=== PATIENT | female | born 1990 | race Two or more races ===

== ENCOUNTER 2023-10-18 02:20 | Emergency (ER) | payer OTHER ==
[~2023-10-18] VITALS: Ht 160 cm; Wt 74.4 kg
[2023-10-18] MEDS ORDERED: PRENA1 CHEW TA1.4 MG PO (02:34)
[2023-10-18 06:00] LABS: PH,URINE 6.5 (5.0-8.0); URINE APPEARANCE Clear; URINE BILIRRUBIN Negative (NEGATIVE); URINE BLOOD Large; URINE COLOR Yellow; URINE GLUCOSE Negative (NEGATIVE); URINE LEUKOCYTE Small; URINE NITRATE Negative; URINE PROTEIN Negative (NEGATIVE); URINE UROBILINOGEN 0.2 E.U./dl
[2023-10-18 06:03] LABS: URINE RBC 10.6 uL (0.0-20.8); URINE WBC 86.7 uL (0.0-23.2)
[2023-10-18 06:11] LABS: HEMATOCRIT 36.5 % (36.0-45.00); HEMOGLOBIN 12.8 g/dL (12.0-15.00); MEAN CELL VOLUME 93.9 fL (80.00-100.00); MEAN CORPUSCULAR HGB CONC 35.2 g/dl (32.0-36.0); PLATELET COUNT 295 K/uL (150-450); RED BLOOD COUNT 3.88 M/uL (4.00-6.00); RED CELL DISTRIBUTION WIDTH 13.5 % (11.5-14.5)
[2023-10-18 06:18] LABS: URINE BACTERIA > 9821.5 uL (0.0-1933); URINE KETONE 40 (NEGATIVE)
[2023-10-18 06:26] LABS: INR 0.96; PARTIAL THROMBOPLASTIN TIME 28.8 SECONDS (22.0-34.0); PROTHROMBIN TIME 10.5 SECONDS (9.0-11.5)
[2023-10-18 07:12] LABS: CALCIUM 8.7 mg/dL (8.5-10.1); CREATININE SERUM 0.59 mg/dL (0.55-1.02); GFR 118.12; POTASSIUM 3.5 mEq/L (3.5-5.1)
== END 2023-10-18 07:43 ==
LOC: ER 02:21
PROVIDERS: General Practice
DX: O20.8 Other hemorrhage in early pregnancy (principal); Z3A.11 11 weeks gestation of pregnancy

== ENCOUNTER 2023-10-28 03:20 | Emergency (ER) | payer OTHER ==
[~2023-10-28] VITALS: Ht 160 cm; Wt 74.4 kg
[~2023-10-28 03:20] MED LIST: PRENA1 CHEW TA1.4 MG PO
[2023-10-28 05:46] LABS: HEMATOCRIT 36.2 % (36.0-45.00); HEMOGLOBIN 12.8 g/dL (12.0-15.00); MEAN CELL VOLUME 93.8 fL (80.00-100.00); MEAN CORPUSCULAR HGB CONC 35.2 g/dl (32.0-36.0); PLATELET COUNT 303 K/uL (150-450); RED BLOOD COUNT 3.86 M/uL (4.00-6.00); RED CELL DISTRIBUTION WIDTH 13.4 % (11.5-14.5)
== END 2023-10-28 06:06 | disposition home or self-care (01) ==
LOC: ER 03:21
PROVIDERS: General Practice
DX: O20.8 Other hemorrhage in early pregnancy (principal); Z3A.12 12 weeks gestation of pregnancy

== ENCOUNTER 2024-01-31 10:53 | Outpatient (CLI) | payer OTHER ==
[2024-01-31 10:02] VITALS: BP 112/78; O2SAT 100
[2024-01-31] MEDS ORDERED: RINGERS SOLUTION,LACTATED 1,000 ML IV SCH (11:45)
[2024-01-31] MEDS ORDERED: CEFAZOLIN SODIUM 1,000 MG VIAL IV ONE (11:45)
[2024-01-31] MEDS ORDERED: TERBUTALINE SULFATE 1 MG/ML AMPUL SUBCUTANEO ONE (11:45)
[2024-01-31] MEDS ORDERED: BETAMETHASONE ACETATE,SOD PHOS 30 MG/5 ML ML IM ONE (11:45)
[2024-01-31] MEDS ORDERED: COLD & FLU SEV1 EACH (11:47)
[2024-01-31 13:14] LABS: HEMATOCRIT 29.8 % (36.0-45.00); HEMOGLOBIN 10.4 g/dL (12.0-15.00); MEAN CELL VOLUME 95.5 fL (80.00-100.00); MEAN CORPUSCULAR HEMOGLOBIN 33.4 pg (27.00-32.0); MEAN CORPUSCULAR HGB CONC 34.9 g/dl (32.0-36.0); PLATELET COUNT 250 K/uL (150-450); RED BLOOD COUNT 3.12 M/uL (4.00-6.00); URINE APPEARANCE Clear; URINE BILIRRUBIN Negative (NEGATIVE); URINE BLOOD Moderate; URINE COLOR Yellow; URINE GLUCOSE Negative (NEGATIVE); URINE KETONE Negative (NEGATIVE); URINE LEUKOCYTE Large; URINE NITRATE Negative; URINE PROTEIN Negative (NEGATIVE)
[2024-01-31 13:17] LABS: URINE BACTERIA 7768.5 uL (0.0-1933); URINE EPITHELIAL CELLS 47.9 uL (0.0-38.8); URINE RBC 3.6 uL (0.0-20.8); URINE WBC 89.1 uL (0.0-23.2)
[2024-01-31 13:22] LABS: URINE CAST 0.14 uL (0.0-1.40)
[2024-01-31 13:35] LABS: INR 0.94; PARTIAL THROMBOPLASTIN TIME 25.6 SECONDS (22.0-34.0); PROTHROMBIN TIME 10.3 SECONDS (9.0-11.5)
[2024-01-31 13:55] LABS: BILIRUBIN TOTAL 0.35 mg/dL (0.3-1.2); CREATININE SERUM 0.44 mg/dL (0.55-1.02); GFR 165.71; GLOBULINA 3.5 G/DL (2.4-3.5); POTASSIUM 4.48 mEq/L (3.5-5.1); TOTAL PROTEIN 6.5 gm/dL (6.4-8.2)
[2024-01-31 16:06] VITALS: BP 106/71
[2024-01-31] MEDS ORDERED: CEFAZOLIN SODIUM 1,000 MG VIAL IV SCH (18:00)
[2024-01-31 18:45] VITALS: BP 106/71
== END 2024-01-31 18:45 | disposition home or self-care (01) ==
LOC: OBS/DEL 10:53
PROVIDERS: ATTEND Specialist
DX: O26.892 Other specified pregnancy related conditions, second trimester (principal); O60.00 Preterm labor without delivery, unspecified trimester; O26.859 Spotting complicating pregnancy, unspecified trimester; O36.8199 Decreased fetal movements, unspecified trimester, other fetus; Z3A.27 27 weeks gestation of pregnancy

== ENCOUNTER 2024-04-28 13:15 | Inpatient (IN) | payer OTHER ==
[~2024-04-28] VITALS: Ht 160 cm; Wt 3.6 kg
[~2024-04-28 13:15] MED LIST changes: +COLD & FLU SEV1 EACH
[2024-05-06] MEDS ORDERED: AMPICILLIN SODIUM 2,000 MG VIAL IV ONE (06:00)
[2024-05-06] MEDS ORDERED: RINGERS SOLUTION,LACTATED 1,000 ML IV SCH (06:00)
[2024-05-06 06:20] VITALS: BP 116/83
[2024-05-06 07:00] LABS: HEMATOCRIT 35.6 % (36.0-45.00); HEMOGLOBIN 12.3 g/dL (12.0-15.00); MEAN CELL VOLUME 96.8 fL (80.00-100.00); MEAN CORPUSCULAR HEMOGLOBIN 33.5 pg (27.00-32.0); MEAN CORPUSCULAR HGB CONC 34.6 g/dl (32.0-36.0); PLATELET COUNT 264 K/uL (150-450); RED BLOOD COUNT 3.68 M/uL (4.00-6.00); RED CELL DISTRIBUTION WIDTH 13.9 % (11.5-14.5)
[2024-05-06 07:08] LABS: PH,URINE 6.5 (5.0-8.0); URINE APPEARANCE Clear; URINE BILIRRUBIN Negative (NEGATIVE); URINE BLOOD Negative; URINE COLOR Dark Yellow; URINE GLUCOSE Negative (NEGATIVE); URINE KETONE Trace (NEGATIVE); URINE LEUKOCYTE Small; URINE NITRATE Negative; URINE PROTEIN Trace (NEGATIVE)
[2024-05-06 07:09] LABS: URINE EPITHELIAL CELLS 42.7 uL (0.0-38.8); URINE RBC 13.5 uL (0.0-20.8); URINE WBC 96.4 uL (0.0-23.2)
[2024-05-06] MEDS ORDERED: OXYTOCIN 500 ML IV SCH (07:15)
[2024-05-06 07:22] LABS: INR 0.94; PARTIAL THROMBOPLASTIN TIME 26.5 SECONDS (22.0-34.0); PROTHROMBIN TIME 10.3 SECONDS (9.0-11.5)
[2024-05-06 07:35] LABS: ALBUMIN 2.9 gm/dL (3.4-5.0); BILIRUBIN TOTAL 0.63 mg/dL (0.3-1.2); CALCIUM 9.5 mg/dL (8.5-10.1); CREATININE SERUM 0.71 mg/dL (0.55-1.02); GFR 95.4; GLOBULINA 3.7 G/DL (2.4-3.5); POTASSIUM 4.8 mEq/L (3.5-5.1); TOTAL PROTEIN 6.6 gm/dL (6.4-8.2)
[2024-05-06 07:38] VITALS: BP 140/91
[2024-05-06 07:58] LABS: URINE CAST 0.29 uL (0.0-1.40)
[2024-05-06] MEDS ORDERED: AMPICILLIN SODIUM 1,000 MG VIAL IV SCH (09:00)
[2024-05-06 11:36] VITALS: BP 134/80
[2024-05-06] MEDS ORDERED: ERYTHROMYCIN BASE OPHT 1GM EACH TUBE OP ONE ×2 (13:53→14:24)
[2024-05-06] MEDS ORDERED: OXYTOCIN 10 UNITS/ML VIAL ONE ×3 (13:53→19:18)
[2024-05-06] MEDS ORDERED: MORPHINE SULFATE 4 MG/ML CARTRIDGE IV PRN (16:30)
[2024-05-06] MEDS ORDERED: AMPICILLIN SODIUM 1,000 MG VIAL ONE (19:18)
[2024-05-06 19:49] VITALS: BP 140/80
[2024-05-07 00:48] VITALS: BP 127/75
[2024-05-07 04:12] LABS: HEMOGLOBIN 10.6 g/dL (12.0-15.00); MEAN CELL VOLUME 95.9 fL (80.00-100.00); MEAN CORPUSCULAR HEMOGLOBIN 33.8 pg (27.00-32.0); MEAN CORPUSCULAR HGB CONC 35.4 g/dl (32.0-36.0); PLATELET COUNT 227 K/uL (150-450); RED BLOOD COUNT 3.13 M/uL (4.00-6.00); RED CELL DISTRIBUTION WIDTH 13.9 % (11.5-14.5)
[2024-05-07 08:00] VITALS: BP 124/74
[2024-05-07] MEDS ORDERED: IBUprofen 800 MG TABLET PO PRN (08:30)
[2024-05-07] MEDS ORDERED: ACETAMINOPHEN 500 MG GEL..CAP PO PRN (08:30)
[2024-05-07 16:05] VITALS: BP 123/78
[2024-05-08 00:15] VITALS: BP 123/83
[2024-05-08 08:00] VITALS: BP 119/79
[2024-05-08 15:00] VITALS: BP 127/74
[2024-05-09 03:05] VITALS: BP 128/71
[2024-05-09] MEDS ORDERED: IBUPROFEN800 MG PO (06:42)
[2024-05-09 08:14] VITALS: BP 120/70
== END 2024-05-09 16:38 | disposition home or self-care (01) | DRG 788 ==
LOC: LDR 05-05 13:15 → OB/GYN 05-06 05:38 → LDR 05-06 05:51 → OB/GYN 05-06 15:07
PROVIDERS: ADMIT Specialist; ATTEND Specialist
PROC: 4A1HXCZ Monitoring of Products of Conception, Cardiac Rate, External Approach (ICD-10-PCS; 2024-05-06)
PROC: 10D00Z1 Extraction of Products of Conception, Low, Open Approach (ICD-10-PCS; principal; 2024-05-06 13:00)
DX: O82 Encounter for cesarean delivery without indication (principal); O48.0 Post-term pregnancy; Z3A.40 40 weeks gestation of pregnancy; Z37.0 Single live birth